=== PATIENT | male | born 1995 | race Two or more races ===

== ENCOUNTER 2019-09-14 09:29 | Inpatient (IN) | payer OTHER ==
[~2019-09-14] VITALS: Ht 175.3 cm; Wt 70.8 kg
--- NOTE | 2019-09-14 09:51 | NUR ---
PTE LLEGA DE CRUCERON CON DOLOR ABDOMIANL ACOMPANADO DE VOMITOS X 4 EN EL ELIZABETH DE KATHARINE Y HOY.
--- NOTE | 2019-09-14 10:27 | NUR ---
PTE MASCULINO ALERTA Y ORIENTADO EN LAS ANAND ESFERAS ES EVALUADO POR DR. READ EL CUAL ORDENA TRATAMIENTO. MRS.LOGRONO ORIENTA PTE SOBRE TRATAMIENTO ORDENADO, REFIERE COMPRENDER. COLECTA MUESTRAS DE LABORATORIO Y CANALIZA, BAJO MEDIDAS ASEPTICAS. ENTREGA CONTRASTE ORAL GASTROVIEW Y ORIENTA PTE SOBRE KARAN THERESA EL MISMO, REFIERE COMPRENDER. SE ENTREGA ENVASE PARA COLECCION DE ORINA, SE ORIENTA PTE A THERESA EL MISMO, REFIERE ENTENDER. SE MANTIENE BAJO OBSERVACION POR CAMBIOS SIGNIFICATIVOS.
[2019-09-17] MEDS ORDERED: ULTRACET PO (10:57)
[2019-09-17] MEDS ORDERED: CIPRO500 MG PO (10:57)
[2019-09-17] MEDS ORDERED: PROTONIX IV40 MG PO (10:57)
== END 2019-09-17 12:51 | disposition home or self-care (01) | DRG 343 ==
LOC: ER 09:29 → O/R 13:55 → SURG 17:14
PROVIDERS: ADMIT Surgery
PROC: BW21Y0Z Computerized Tomography (CT Scan) of Abdomen and Pelvis using Other Contrast, Unenhanced and Enhanced (ICD-10-PCS; 2019-09-14)
PROC: 0DTJ0ZZ Resection of Appendix, Open Approach (ICD-10-PCS; principal; 2019-09-14 12:00)
DX: K35.890 Other acute appendicitis without perforation or gangrene (principal); R10.31 Right lower quadrant pain